=== PATIENT | female | born 2000 | race Caucasian/White ===

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

== ENCOUNTER 2020-07-25 18:45 | Emergency (ER) | payer BC ==
[~2020-07-25] VITALS: Ht 160 cm; Wt 72.7 kg
[~2020-07-25 18:45] MED LIST: DIAZ5TAB PO; PRD10T PO
[2020-07-25 18:55] VITALS: BP 123/80
[2020-07-25] MEDS ORDERED: FAMOTIDINE 20 MG (PEPCID) TABLET PO STA (19:17)
[2020-07-25] MEDS ORDERED: ONDANSETRON 4 MG (ZOFRAN) ORAL DISSOLVE TAB SL STA (19:17)
--- NOTE | 2020-07-25 19:23 | ED General ---
General Chief Complaint: General Problems/Pain Stated Complaint: RINGING IN EARS/SEEING BLACK-TOOK IBUPROFEN&ASPIRI Nursing Triage Note: PRESENTS TO ROOM #5 VIA POV W/CO SHAKINESS ET RINGING IN HER EARS. STATES AT 1300 SHE ACCIDENLTY TOOK 650MG ASA THINKING IT WAS TYLENOL FOR HER HEADACHE. STATES "I JUST WANT TO MAKE SURE I AM NOT DYING." Nursing Sepsis Screen: No Definite Risk History of Present Illness Date Seen by Provider: Jul 25, 2020 Time Seen by Provider: 18:55 Initial Comments 20-year-old female presents after taking 700 mg of aspirin (per patient, questioned dose and she said they were 350mg each) instead of Tylenol for headache and ibuprofen 400 mg orally. She does report her headache is better however she had some tinnitis and black spots in her vision(both have resolved), now tingling in her fingers and GI upset. No history of chronic GI problems or bleeding. Timing/Duration: 4-6 Hours Severity: Mild Associated Systoms: Denies Symptoms Allergies and Home Medications Allergies Coded Allergies: No Known Drug Allergies (Unverified , 05/15/19) Home Medications Diazepam 5 Mg Tablet, 5 MG PO Q6H Prescribed by: MAGDI SCHOFIELD on 05/15/192105 Prednisone 10 Mg Tab, 40 MG PO DAILY Prescribed by: MAGDI SCHOFIELD on 05/15/192105 Patient Home Medication List Home Medication List Reviewed: Yes Review of Systems Review of Systems Constitutional: no symptoms reported, see HPI EENTM: see HPI, other (vision changes) Respiratory: no symptoms reported, see HPI Cardiovascular: no symptoms reported, see HPI Gastrointestinal: see HPI, heartburn Genitourinary: no symptoms reported, see HPI Musculoskeletal: no symptoms reported, see HPI Skin: no symptoms reported, see HPI All Other Systems Reviewed Negative Unless Noted: Yes Past Fruoffa-Kmvstz-Ooahet Hx Past Med/Social Hx: Reviewed Nursing Past Med/Soc Hx Patient Social History Alcohol Use: Denies Use Smoking Status: Never a Smoker 2nd Hand Smoke Exposure: No Recent Infectious Disease Expo: No Recent Hopitalizations: No Seasonal Allergies Seasonal Allergies: No Past Medical History Surgeries: No Respiratory: No Cardiac: No Neurological: No Reproductive Disorders: No Genitourinary: No Gastrointestinal: No Musculoskeletal: No Endocrine: No HEENT: No Cancer: No Psychosocial: No Integumentary: No Blood Disorders: No Physical Exam Vital Signs Vital Signs - First Documented 07/25/20 18:55 Temp 36.8 Pulse 81 Resp 18 B/P (MAP) 123/80 (94) Pulse Ox 98 O2 Delivery Room Air Capillary Refill : Less Than 3 Seconds Height, Weight, BMI Height: '" Weight: lbs. oz. kg; 28.00 BMI Method: General Appearance: No Apparent Distress, WD/WN Eyes: Bilateral Eye Normal Inspection, Bilateral Eye PERRL, Bilateral Eye EOMI HEENT: PERRL/EOMI, TMs Normal, Normal ENT Inspection, Pharynx Normal Neck: Full Range of Motion, Normal Inspection, Non Tender, Supple Respiratory: Chest Non Tender, Lungs Clear, Normal Breath Sounds Cardiovascular: Regular Rate, Rhythm, No Edema, No Murmur, Normal Peripheral Pulses Gastrointestinal: Normal Bowel Sounds, Non Tender, Soft Extremity: Normal Capillary Refill, Normal Inspection, Normal Range of Motion, Non Tender, No Calf Tenderness Neurologic/Psychiatric: Alert, Oriented x3, No Motor/Sensory Deficits, Normal Mood/Affect Progress/Results/Core Measures Suspected Sepsis Recent Fever Within 48 Hours: No Infection Criteria Present: None New/Unexplained Altered Menta: No Sepsis Screen: No Definite Risk SIRS Temperature: Pulse: 81 Respiratory Rate: 18 Blood Pressure 123 /80 Mean: 94 Results/Orders My Orders Orders - SIN [facility]ERCE Ondansetron Oral Dissolve Tab (Zofran (07/25/20 19:17) Famotidine Tablet (Pepcid Tablet) (07/25/20 19:17) Vital Signs/I&O 07/25/20 18:55 Temp 36.8 Pulse 81 Resp 18 B/P (MAP) 123/80 (94) Pulse Ox 98 O2 Delivery Room Air Capillary Refill : Less Than 3 Seconds Blood Pressure Mean: 94 Progress Note : Time: 18:55 Progress Note Patient seen and evaluated, discussed toxic levels of aspirin, since her symptoms are already improving and she took minimal dose of aspirin I am not concerned with getting an subsalicylate at level. We will give Pepcid 20 mg and Zofran 4 mg for GI complaints. Discharge instructions and return precautions reviewed with the patient. Departure Impression Primary Impression: General medical exam Additional Impressions: Nausea Abdominal pain Qualified Codes: R10.13 - Epigastric pain Disposition: 01 HOME, SELF-CARE Condition: Improved Departure-Patient Inst. Decision time for Depature: 19:15 Referrals: KOLE GOMES MD Patient Instructions: Aspirin Add. Discharge Instructions: Increase water intake, 16 ounces every 2 hours while awake. Stick to a bland diet, avoid spicy or fried foods for the next 24 hours. Do not take any further aspirin or ibuprofen for the next 48 hours. Follow-up with [facility] if symptoms are not improving or worsen. Use your home Zofran every 8 hours for nausea and take Pepcid 20 mg 1 tablet twice daily for the next 3 to 4 days. Return to the emergency department for new, urgent healthcare needs. All discharge instructions reviewed with patient and/or family. Voiced understanding. Copy Copies To 1: KOLE GOMES MD [facility] Jul 25, 2020 19:23
== END 2020-07-25 19:30 | disposition home or self-care (01) ==
LOC: EDUNIT# 18:45 → ER 18:47
DX: R11.0 Nausea (principal); R10.9 Unspecified abdominal pain; Z79.52 Long term (current) use of systemic steroids
CPT/HCPCS: 99283